=== PATIENT | female | born 1985 | race Caucasian/White ===

== ENCOUNTER 2023-09-03 13:07 | Outpatient (CLI) | payer OTHER, SELFPAY ==
--- NOTE | ~2023-09-03 | XR_ITS ---
EXAMINATION: XR finger 4th LT min 2V DATE: 09/03/2023 13:27 INDICATION: Contusion to the left fourth finger TECHNIQUE: Dorsal palmar, lateral and 2 oblique views of the left fourth digit were obtained COMPARISON: None FINDINGS: Alignment is normal. No fracture. Joint spaces are normal. Soft tissues are unremarkable. IMPRESSION: 1. Negative left fourth finger radiographs. Reviewed, dictated and finalized at location A. ERER
== END 2023-09-03 13:08 ==
PROVIDERS: PCP Physician Assistant; Visit Provider Physician Assistant
DX: S60.042A Contusion of left ring finger without damage to nail, initial encounter (principal); X58.XXXA Exposure to other specified factors, initial encounter
CPT/HCPCS: 73140

== ENCOUNTER 2024-12-07 09:25 | Outpatient (CLI) | payer OTHER, SELFPAY ==
--- NOTE | ~2024-12-07 | US_ITS ---
US thyroid INDICATION: Thyroid nodule TECHNIQUE: Real-time sonographic images of the thyroid gland were obtained. COMPARISON: No prior studies for comparison. FINDINGS: The right thyroid lobe measures 5.3 x 1.5 x 1.3 cm. The left thyroid lobe measures 4.1 x 1 x 1.4 cm. There is normal echotexture and echogenicity throughout the thyroid gland. There are multi ple small hypoechoic nodules throughout both lobes, most of which appear cystic. In the isthmus there is an oval solid hypoechoic wider than tall, smoothly marginated mass measuring 6 x 3 x 4 mm, TR 4, likely benign. Normal vascular flow is present. IMPRESSION: 1. Multiple small bilateral thyroid masses most of which are cystic. Findings compatible with benign multinodular goiter. No masses meet sonographic criteria for biopsy. Reviewed, dictated and finalized at location B.
== END 2024-12-07 09:26 | disposition home or self-care (01) ==
PROVIDERS: PCP Physician Assistant; Visit Provider Physician Assistant
DX: E04.2 Nontoxic multinodular goiter (principal)
CPT/HCPCS: 76536

== ENCOUNTER 2025-04-10 15:56 | Outpatient (CLI) | payer OTHER, SELFPAY ==
--- NOTE | ~2025-04-10 | XR_ITS ---
EXAMINATION: XR chest 2V, 04/10/2025 16:02 CDT HISTORY: PERSISTENT COUGH x 6 weeks, SOB 2 weeks, no inj, no surg COMPARISON: No comparisons available. Technique: 2 views obtained. Findings: The lungs are clear, no effusion. No pneumothorax. Heart is normal size. Mediastinal and hilar contours are within normal limits. Bony thorax no acute abnormality. Impression: No acute cardiopulmonary abnormality. Reviewed, dictated and finalized at location P. Impression: No acute cardiopulmonary abnormality.
== END 2025-04-10 15:57 | disposition home or self-care (01) ==
LOC: GOSHIMG 15:57
PROVIDERS: PCP Physician Assistant; Visit Provider Physician Assistant
DX: R05.3 Chronic cough (principal)
CPT/HCPCS: 71046